=== PATIENT | male | born 1985 | race Caucasian/White ===

== ENCOUNTER 2018-12-24 11:24 | Outpatient (CLI) | payer OTHER, SELFPAY ==
[2018-12-24 12:44] LABS: Abs Immature Grans 0.01 k/cumm (0.0-0.09); Absolute Basophil Count 0.02 k/cumm (0.0-0.2); Absolute Eosinophil Count 0.18 k/cumm (0.0-0.7); Absolute Lymphocyte Count 2.03 k/cumm (1.2-3.4); Absolute Monocyte Count 0.61 k/cumm (0.11-0.7); Absolute Neutrophil Count 2.67 k/cumm (1.2-6.7); Basophils % 0.4; Eosinophils % 3.3; HCT 41.3 % (40.0-50.0); HGB 14.5 g/dL (13.5-17.5); Immature Grans % 0.2; Lymphocytes % 36.8; Mean Corp. HGB Concentration 35.1 g/dL (32.0-36.0); Mean Corpuscular Hemoglobin 30.7 pg (27.0-33.0); Mean Corpuscular Volume 87.5 fL (80-95); Mean Platelet Volume 10.9 fL (8.0-11.0); Monocytes % 11.1; Neutrophils % 48.2; Platelet Count 201 x1000/uL (130-400); RBC 4.72 m/cumm (4.50-6.00); RBC Distribution Width 13.1 % (11.8-14.1); White Blood Cell Count 5.52 k/cumm (4.4-10.8)
[2018-12-24 13:03] LABS: ALT 73 U/L (12-78); AST 30 U/L (15-37); Albumin 3.8 g/dL (3.4-5.0); Alkaline Phosphatase 84 U/L (46-116); BUN 11 mg/dL (7-18); Bilirubin, Total 0.3 mg/dL (0.2-1.0); CREATININE 1.03 mg/dL (0.70-1.30); Calcium 8.9 mg/dL (8.5-10.1); Chloride 103 mmol/L (98-107); Glucose 96 mg/dL (70-100); Potassium 4.2 mmol/L (3.5-5.1); Sodium 142 mmol/L (136-145); Total Protein 7.4 g/dL (6.4-8.2)
== END 2018-12-24 11:44 ==
PROVIDERS: PCP Internal Medicine; Visit Provider Nurse Practitioner Adult Health
DX: B18.2 Chronic viral hepatitis C (principal)
CPT/HCPCS: 36415; 80053; 85025

== ENCOUNTER 2019-06-15 14:19 | Emergency (ER) | payer MEDICAID, SELFPAY ==
[2019-06-15 14:28] VITALS: BP 169/93; PULSE 90; RESP 16; TEMP 36.4; O2SAT 96
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
== END 2019-06-15 14:58 | disposition home or self-care (01) ==
PROVIDERS: Emergency Provider Emergency Medicine; PCP Internal Medicine
DX: M54.2 Cervicalgia (principal); Y04.0XXA Assault by unarmed brawl or fight, initial encounter; Z53.29 Procedure and treatment not carried out because of patient's decision for other reasons
CPT/HCPCS: 99281; 99283

== ENCOUNTER 2020-07-06 07:26 | Outpatient (CLI) | payer MEDICAID, SELFPAY ==
[2020-07-08 05:06] LABS: SARS-CoV-2 RNA Undetected (Undetected)
== END 2020-07-06 07:46 ==
PROVIDERS: PCP Internal Medicine; Visit Provider Nurse Practitioner Family
DX: Z11.59 Encounter for screening for other viral diseases (principal)
CPT/HCPCS: U0003

== ENCOUNTER 2020-09-14 12:49 | Outpatient (REF) | payer MEDICAID, SELFPAY ==
[2020-09-16 16:57] LABS: COVID-19 RT-PCR Result Not Detected ((See Note))
== END 2020-09-14 13:09 ==
LOC: NCHCN 12:49
PROVIDERS: PCP Internal Medicine; Visit Provider Nurse Practitioner Family
DX: Z20.828 Contact with and (suspected) exposure to other viral communicable diseases (principal)
CPT/HCPCS: U0003

== ENCOUNTER 2020-09-30 13:37 | Outpatient (REF) | payer MEDICAID, SELFPAY ==
[2020-10-03 11:16] LABS: SARS-CoV-2 RNA Not Detected (NotDetected); SARS-CoV-2 RNA Source Nasal/Nares
== END 2020-09-30 13:57 ==
LOC: NCHCN 13:37
PROVIDERS: PCP Internal Medicine; Visit Provider Nurse Practitioner Family
DX: Z20.828 Contact with and (suspected) exposure to other viral communicable diseases (principal)
CPT/HCPCS: U0003

== ENCOUNTER 2020-10-04 14:08 | Outpatient (REF) | payer MEDICAID, SELFPAY ==
[2020-10-07 21:30] LABS: SARS-CoV-2 RNA Source Nasal/Nares
[2020-10-07 21:36] LABS: SARS-CoV-2 RNA Not Detected (NotDetected)
== END 2020-10-04 14:28 ==
LOC: NCHCN 14:08
PROVIDERS: PCP Internal Medicine; Visit Provider Nurse Practitioner Family
DX: Z20.828 Contact with and (suspected) exposure to other viral communicable diseases (principal)
CPT/HCPCS: U0003

== ENCOUNTER 2021-02-08 03:01 | Outpatient (CLI) | payer MEDICAID, SELFPAY ==
--- NOTE | 2021-02-08 08:15 | RT.EKG_ITS ---
APPROVED REPORT Exam: Resting ECG Patient Location: O HR:67 bpm ECG Measurements Heart Rate 67 AXIS MD 177 P 26 QRSd 87 QRS 54 QT 432 T 41 QTc 455 Conclusion Sinus rhythm...normal P axis, V-rate 60- 99 Normal Electrocardiogram
== END 2021-02-08 03:02 | disposition home or self-care (01) ==
LOC: RT 03:01
PROVIDERS: PCP Internal Medicine; Visit Provider Family Medicine
DX: Z79.899 Other long term (current) drug therapy (principal); Z13.6 Encounter for screening for cardiovascular disorders
CPT/HCPCS: 93005; 93010

== ENCOUNTER 2021-07-04 09:51 | Emergency (ER) | payer MEDICAID, SELFPAY ==
[2021-07-04 09:55] VITALS: BP 145/96; PULSE 110; RESP 19; TEMP 36.3; O2SAT 95
--- NOTE | 2021-07-04 10:57 | ED.GENADUL_ITS ---
Discharge Plan Disposition Patient Disposition: HOME Condition: Stable Discharge Details Clinical Impression: Chest wall contusion Primary Care Provider: Heri Swartz ED Provider: Sherine Magallanes Home Meds and New Rx's Prescriptions: Continued lithium carbonate 450 mg tablet extended release 450 mg PO BID RF: 0 methadone 40 mg Tablet,Soluble 85 mg PO DAILY RF: 0 lamotrigine 100 mg tablet 200 mg PO DAILY RF: 0 Discharge Instructions Instructions: Contusion in Adults (ED) Additional Instructions: Your imaging is reassuring here today. No evidence of fracture. Please encourage hydration. Please encourage deep breathing and use the incentive spirometer given to you. Please use this at least 6 times daily to encourage deep breathing. This will help prevent pneumonia. Please follow-up with primary care in the next 1 to 2 weeks for reevaluation. If you develop fever/chills, shortness of breath, difficulty breathing or other new/worsening symptoms please seek care urgently once again. Referrals: Heri Swartz MD [Primary Care Provider] - Discharge Data Discharge Date/Time-TO BE ENTERED AT DEPARTURE: 07/04/21 12:25 Medical Decision Making Patient is a pleasant 36-year-old male presenting today with chief complaint of chest pain. He reports that he has had pain over his sternum for the past 4 days after he fell from standing position striking his sternum against the edge of a half wall. Denies other injuries from the incident. He did not strike his head, no loss of conscious. Denies any pain in his back. States he does have increased pain with deep inspiration as well as palpation. Palpation seems to be the most exacerbating factor. He did use ibuprofen yesterday but nothing today. He is more short of breath with simple ambulation. No fevers or chills. No cough. On exam, patient appears anxious and uncomfortable. Pain is easily reproducible with palpation over the sternum as well as over the right pectoral muscle. No crepitus. No palpable deformity. Lungs are clear in all perales. Will obtain a 2 view chest as well as treat patient's pain with Tylenol and ibuprofen. Patient is on methadone FINDINGS: MEDIASTINUM: Normal. HEART: Normal. PULMONARY VASCULATURE: Normal. LUNGS: Clear. PLEURAL SPACE: No pleural effusion or pneumothorax. BONE:Unremarkable for age. IMPRESSION: No acute abnormality. Discussed these findings with the patient. Advised contusion, particularly with finding of small bruise on exam. Encourage hydration. Advised Tylenol and ibuprofen as needed for discomfort. Return precautions were discussed. Encourage follow-up with primary care in the next 1 to 2 weeks for reevaluation. All the questions and concerns were addressed in agreement this plan. HPI General Mode of arrival: ambulatory . Date/Time Provider Initiated Documentation: 07/04/21 10:57 . Limitations to Documentation: no limitations . Information obtained by: patient and RN notes reviewed . History of Present Illness 36 year old M presents to the emergency department with the chief complaint of chest wall pain after fall, described as moderate, with intensity rated at 6. Quality is described as aching, and is localized to the chest. Patient reports no radiation. Patient started experiencing this day(s) (4) and it has been constant. Immobilization improves symptom(s), Movement worsens symptoms (not with ambulation, pain with movement of RUE) . Patient notes no other symptoms.; denies cough, diaphoresis, fever/chills, nausea/vomiting, rash, shortness of breath and syncope. Patient did receive the following treatments prior to arrival, none Related Data Home Medications Medication Instructions Recorded Confirmed lamotrigine 200 mg PO DAILY 07/04/21 07/04/21 lithium carbonate 450 mg PO BID 07/04/21 07/04/21 methadone 85 mg PO DAILY 07/04/21 07/04/21 Allergies Allergy/AdvReac Type Severity Reaction Status Date / Time nickel Allergy Unknown Skin Rash Unverified 07/04/21 09:58 Penicillins AdvReac Unverified 07/04/21 09:58 General Stated Complaint: Chest/Rib ZENAIDA: 4 Review of Systems Constitutional Constitutional: Reports as per HPI, Denies chills, Denies fever(s), Denies headache(s), Denies lethargy and Denies poor appetite Eyes Eyes: Denies change in vision ENT Ears, Nose, Mouth, and Throat: Denies dizziness and Denies headache(s) Cardiovascular Cardiovascular: Reports as per HPI, Reports chest pain, Denies chest pain at rest, Reports chest pain with activity (with movement of the RUE), Denies dyspnea and Denies dyspnea on exertion Respiratory Respiratory: Reports as per HPI, Denies chest congestion, Denies cough, Denies pain on inspiration, Denies pain with cough, Denies dyspnea, Denies dyspnea on exertion and Denies wheezing Gastrointestinal Gastrointestinal: Reports as per HPI, Denies abdominal pain, Denies diarrhea, Denies nausea and Denies vomiting Musculoskeletal Musculoskeletal: Reports as per HPI and Denies back pain Integumentary/Breasts Skin/Breast: Reports as per HPI and Denies rash Neurologic Neurologic: Reports as per HPI, Denies dizziness and Denies headache(s) Allergic/Immunologic Allergic/Immunologic: Denies wheezing [facility] Medical History Drug use Social History Smoking/Tobacco Use Status: Current every day Smoking risk assessment performed?: Yes Alcohol Intake: current Alcohol Intake frequency: a few times a week Drug use: Occasionally Substance use type: crack/cocaine and opiates Do you feel safe at home: Yes Do you feel safe in your relationship?: Yes Exam Const General: cooperative, healthy appearing, comfortable, no acute distress, well developed and intoxicated appearing Nutritional Appearance: average body habitus and well nourished Orientation: alert, awake and oriented x3 HENMT Head: normal to inspection Chest Chest: normal inspection of the chest, normal palpation of entire chest wall and no crepitus Chest/axillae images: 1. Area of ecchymosis. no palpable deformity. No crepitus. Discomfort along the anterior chest wall on the right side with palpation. Resp Effort & Inspection: normal respiratory effort, able to speak in complete sentences and no respiratory distress Auscultation: clear to auscultation bilaterally, no rales, no rhonchi and no wheezes Cardio Rate: regular rate Rhythm: regular rhythm Heart Sounds: S1 normal and S2 normal GI Inspection: normal to inspection, no edema and non-distended Palpation: soft, no hepatosplenomegaly, not firm, no guarding, not rigid and nontender Auscultation: normal bowel sounds Back/Spine/Pelvis Thoracic/Lumbar Spine: thoracic and lumbar spine normal to inspection Skin General skin exam: ecchymosis Neuro General: patient alert, patient awake and patient oriented x3 Cognition: normal cognition Speech: speech normal Gait: normal gait Extrem General: normal to inspection, capillary refill normal, no pedal edema, no calf tenderness and normal gait Psych Appearance: grossly normal and well kempt Mental Status: mental status grossly normal Speech and Movement: speech and movement normal Course Vital Signs Vital signs: Vital Signs Temperature 36.3 C L 07/04/21 09:55 Pulse 110 H 07/04/21 09:55 Respiratory Rate 19 07/04/21 09:55 Blood Pressure 145/96 H 07/04/21 09:55 Pulse Oximetry 95 07/04/21 09:55 Temperature 36.3 C L 07/04/21 09:55 Temperature Source Temporal Artery Scan 07/04/21 09:55 Pulse 110 H 07/04/21 09:55 Respiratory Rate 19 07/04/21 09:55 Respiratory Effort Non-Labored 07/04/21 10:02 Respiratory Depth Normal 07/04/21 10:02 Respiratory Pattern Normal 07/04/21 10:02 Blood Pressure 145/96 H 07/04/21 09:55 Pulse Oximetry 95 07/04/21 09:55 Oxygen Delivery Method Room Air 07/04/21 09:55 Oxygen Flow Rate 0 07/04/21 09:55 Pain Level 6 07/04/21 10:02
[2021-07-04] MEDS: Acetaminophen 500 MG TAB 1000 MG PO (11:08)
[2021-07-04] MEDS: Ibuprofen 600 MG TAB PO (11:09)
--- NOTE | 2021-07-04 11:24 | DI.RAD_ITS ---
Exam(s) XR CHEST 2V PA LATERAL EXAM: XR CHEST 2V PA LATERALz CLINICAL HISTORY: fall from standing height, struck sternum on corne TECHNIQUE: 2D digital imaging was performed. COMPARISON: CR CHEST 2 VIEWS PA,LAT from 12/12/2011 FINDINGS: MEDIASTINUM: Normal. HEART: Normal. PULMONARY VASCULATURE: Normal. LUNGS: Clear. PLEURAL SPACE: No pleural effusion or pneumothorax. BONE:Unremarkable for age. IMPRESSION: No acute abnormality. DATA REPOSITORY: RADIATION DOSE DELIVERED:
[2021-07-04 12:17] VITALS: BP 133/79; PULSE 60; RESP 16; O2SAT 99
== END 2021-07-04 12:25 | disposition home or self-care (01) ==
PROVIDERS: Emergency Provider Physician Assistant; PCP Internal Medicine
DX: R07.82 Intercostal pain (principal); S20.211A Contusion of right front wall of thorax, initial encounter; W01.198A Fall on same level from slipping, tripping and stumbling with subsequent striking against other object, initial encounter; R06.09 Other forms of dyspnea
CPT/HCPCS: 99283; 71046